=== PATIENT | female | born 2000 | race Caucasian/White ===

== ENCOUNTER 2019-09-20 16:00 | Emergency (ER) | payer OTHER, MEDICAID, SELFPAY ==
[2019-09-20 16:06] VITALS: BP 126/76; PULSE 108; RESP 18; TEMP 36.7; O2SAT 100; BMI 23.3
--- NOTE | 2019-09-20 16:25 | DI.RAD.S_ITS ---
PROCEDURE: XR CHEST 2V INDICATIONS: chest pain, cough, fever TECHNIQUE: 2 views of the chest were acquired. COMPARISON: None. FINDINGS: Surgical changes and devices: None. Lungs and pleura: Lungs are clear. No pleural effusions or pneumothorax. Mediastinum: Mediastinal contours are normal. Heart size is normal. Bones and chest wall: No suspicious bony abnormalities. Soft tissues appear unremarkable. IMPRESSION: No evidence acute pulmonary process. Dictated by: Steve Blackwood M.D. on 09/20/2019 at 16:47 Approved by: Steve Blackwood M.D. on 09/20/2019 at 16:47
[2019-09-20] MEDS: ONDANSETRON 4 MG ODT SL (16:38)
[2019-09-20 16:42] VITALS: PULSE 111; RESP 14; O2SAT 99
[2019-09-20] MEDS: ALBUTEROL/IPRATROPIUM 3 ML AMPUL INH (16:42)
[2019-09-20 17:12] LABS: Influenza A - CEPHEID Flu A NEGATIVE (NEGATIVE); Influenza B - CEPHEID Flu B NEGATIVE (NEGATIVE)
--- NOTE | 2019-09-20 17:50 | ED_ITS ---
HPI - URI/Sore Throat <ZAK MarroquinP - Last Filed: 09/20/19 18:02> General Chief Complaint: Upper Respiratory Symptoms Stated Complaint: Cough, Wheezing, Fever Time Seen by Provider: 09/20/19 16:10 Source: patient Mode of arrival: Ambulatory Limitations: no limitations History of Present Illness HPI Narrative: This is a 24-year-old female, smoker, who presents to ED with flu-like symptoms for last 5-6 days. Patient reports she gets bronchitis pretty frequently and had 3 episodes in last 6 months. Patient reports chest discomfort with cough worse at night with tightness and describing as lungs are squeezed and can't breathe well and also arm pain. Reports subjective fever and waking up with sweats, chills, nausea and 3 episodes of diarrhea yesterday. Patient denies known exposure to illness or recent foreign travel. Patient denies blood in her stools. Related Data Previous Rx's Medication Instructions Recorded albuterol sulfate 2 inhalation INHALATION Q4-6H PRN 09/20/19 #8.5 gram benzonatate [Tessalon Perles] 100 mg PO BID-TID PRN #10 cap 09/20/19 dextromethorphan-guaifenesin 1 tab PO Q12H PRN #20 tab 09/20/19 [Mucinex DM] ondansetron 4 mg PO BID-TID PRN #7 tab 09/20/19 Allergies Allergy/AdvReac Type Severity Reaction Status Date / Time amoxicillin Allergy Verified 09/20/19 16:05 varenicline [From Chantix] Allergy Verified 09/20/19 16:05 Review of Systems <SHIRLENE Marroquin - Last Filed: 09/20/19 18:02> Review of Systems Narrative: General: See HPI HEENT: Denies sinus pain, ear pain, sore throat, difficulty swallowing, dizziness. Respiratory: See HPI Cardiovascular: Denies chest pain, palpitations, orthopnea, edema. Gastrointestinal: Denies (+) nausea, vomiting, abdominal pain, diarrhea, consti pation, melena. : Denies dysuria, frequency, incontinence, hematuria, urinary retention. Musculoskeletal: Denies weakness, joint pain, (+) arm pain or bony pain. Skin: Denies rash, skin lesions, or other. Neurologic: Denies weakness, headache, numbness, change in speech, confusion, seizures, incoordination. Psychiatric: No concerning psychosocial issues. 12-point review of systems is negative except for those stated above. Patient History <SHIRLENE Marroquin - Last Filed: 09/20/19 18:02> Medical History Migraine headache (Acute) Surgical History History of appendectomy (Acute) Social History Smoking Status: Current every day smoker Smoking Status: Current every day smoker tobacco type: cigarettes alcohol intake frequency: a few times a month Substance Use Type: marijuana Exam <SHIRLENE Marroquin - Last Filed: 09/20/19 18:02> Narrative Exam Narrative: GEN: Alert, oriented x 3, well appearing and nourished, and in no acute distress. Head: Normal cephalic, atraumatic. No scalp or temporal tenderness, palpable mass or rash. EYES: Pupils are equal, round, and reactive to light and accommodation. Extraocular muscles are intact bilaterally. There is no subconjunctival hemorr johnny, exudate and sclera non-icteric. ENT: Bilateral auditory canals and tympanic membranes clear. Hearing grossly intact. Nose without bleeding, purulent discharge or deviation. Facial sinuses nontender to palpate. Mucous membrane moist, no mucosal lesion. Throat without erythema, tonsillar hypertrophy or exudate. Uvula in midline, airway patent. Neck: Trachea in midline. No JVD, non-tender without lymphadenopathy. No masses or thyroid megaly. Supple, non-tender and no meningeal signs. CARDIAC: Normal regular rate and rhythm without murmurs, gallops, or rubs. No chest wall tenderness. No peripheral edema, cyanosis or pallor. Capillary refill is less than 2 seconds. RESPIRATORY: Lungs are decreased to auscultate in all lobes. Frequent coughing during exam without wheezes, rales, or rhonchi. No stridor, respiratory distress, increase work of breathing, or accessary muscle used. ABD: Abdomen soft, nontender and non-distended. No guarding or rebound tenderness to palpate. Bowel sounds are normal in all 4 quadrants. There is no palpable masses or organomegaly. EXT: Full painless ROM of all extremities with no loss of sensation, strength, effusion or edema. SKIN: Warm, dry, normal color for patient. No erythema, lesions or rash over visible areas. BACK: Nontender without deformity or crepitance. No flank tenderness. NEUROLOGICAL: Alert and oriented to place, time and person. Sensation and motor function intact bilaterally. No facial droops, dysphasia. PSYCHIATRIC: Good judgement and reason, without hallucinations, abnormal affect or abnormal behaviors during the examination. Initial Vital Signs Initial Vital Signs: Vital Signs Temperature 98.0 F 09/20/19 16:06 Pulse Rate 108 H 09/20/19 16:06 Respiratory Rate 18 09/20/19 16:06 Blood Pressure 126/76 09/20/19 16:06 Pulse Oximetry 100 09/20/19 16:06 <Tejas Ogden DO - Last Filed: 09/20/19 18:09> Initial Vital Signs Initial Vital Signs: Vital Signs Temperature 98.0 F 09/20/19 16:06 Pulse Rate 108 H 09/20/19 16:06 Respiratory Rate 18 09/20/19 16:06 Blood Pressure 126/76 09/20/19 16:06 Pulse Oximetry 100 09/20/19 16:06 Scores <SHIRLENE Marroquin - Last Filed: 09/20/19 18:02> GCS [place] coma scale eye opening: Spontaneous [place] coma scale verbal response: Orientated [place] coma scale motor response: Obey commands Lakshmi coma scale total score: 15 Course <SHIRLENE Marroquin - Last Filed: 09/20/19 18:02> Orders Ordered: ED Orders 09/20/19 16:25 XR chest 2V Stat 09/20/19 16:34 Influenza A & B (PCR) Stat Discontinued Medications Albuterol/Ipratropium (Duoneb) 3 ml INH NOW ONE Stop: 09/20/19 16:26 Last Admin: 09/20/19 16:42 Dose: 3 ml Documented by: LUIZ Ondansetron HCl (Zofran Odt) 4 mg SL NOW ONE Stop: 09/20/19 16:26 Last Admin: 09/20/19 16:38 Dose: 4 mg Documented by: ZIA Vital Signs Vital signs: Vital Signs - 8 hr 09/20/19 16:06 09/20/19 16:42 09/20/19 18:01 Temperature 98.0 F Pulse Rate 108 H 111 H 93 H Respiratory Rate 18 14 16 Blood Pressure 126/76 Blood Pressure [Right Arm] 133/73 Pulse Oximetry 100 99 100 <Tejas Ogden DO - Last Filed: 09/20/19 18:09> Orders Ordered: ED Orders 09/20/19 16:25 XR chest 2V Stat 09/20/19 16:34 Influenza A & B (PCR) Stat Discontinued Medications Albuterol/Ipratropium (Duoneb) 3 ml INH NOW ONE Stop: 09/20/19 16:26 Last Admin: 09/20/19 16:42 Dose: 3 ml Documented by: LUIZ Ondansetron HCl (Zofran Odt) 4 mg SL NOW ONE Stop: 09/20/19 16:26 Last Admin: 09/20/19 16:38 Dose: 4 mg Documented by: ZIA Vital Signs Vital signs: Vital Signs - 8 hr 09/20/19 16:06 09/20/19 16:42 09/20/19 18:01 Temperature 98.0 F Pulse Rate 108 H 111 H 93 H Respiratory Rate 18 14 16 Blood Pressure 126/76 Blood Pressure [Right Arm] 133/73 Pulse Oximetry 100 99 100 MDM - URI/Sore Throat <SHIRLENE Marroquin - Last Filed: 09/20/19 18:02> Differential Diagnosis Differential diagnosis: Likely upper respiratory infection, bronchitis, influenza and other (Pneumonia) Medical Records Attestation: I reviewed the patient's medical records. Lab Data Attestation: I reviewed the patient's lab results. Labs: Lab Results 09/20/19 Range/Units 16:34 Influenza A (RT-PCR) Flu a negative (NEGATIVE) Influenza B (RT-PCR) Flu b negative (NEGATIVE) Imaging Data Chest x-ray: Radiologist's Impression: MDM Narrative Medical decision making narrative: This is a 19-year-old female current smoker 1 pack per day who presents to ED with upper respiratory infection/flu symptoms for last 5-6 days. Patient's lung sounds are significantly decreased bilaterally without wheezing, crackles or rhonchi but without increased work of breathing. Flu swab was negative today. Patient provided with DuoNeb and patient reports her symptoms improved. Patient advised to quit smoking to prevent frequent bronchitis and chronic lung disease. Patient discharged to home with albuterol inhaler, Mucinex DM and Tessalon perles for PRN use. Advise continue with supportive care and good hand hygiene. Return precautions were discussed with the patient and verbalized understanding and in agreement with the treatment plan. <Tejas Ogden, DO - Last Filed: 09/20/19 18:09> Lab Data Labs: Lab Results 09/20/19 Range/Units 16:34 Influenza A (RT-PCR) Flu a negative (NEGATIVE) Influenza B (RT-PCR) Flu b negative (NEGATIVE) Discharge Plan Departure Patient Disposition: Home Clinical Impression: Bronchitis Discharge Date/Time: 09/20/19 18:08 Instructions: DI for Acute Bronchitis Activity Restrictions/Additional Instructions: You have been diagnosed with [upper respiratory infection and bronchitis. Flu swab was negative. Chest x-ray does not show acute findings such as pneumonia.]. What to do: *Take your medications as directed. Please use albuterol inhaler 2 puffs as needed for frequent coughing, chest tightness, wheezing every 4-6 hours as needed. You can take Tylenol and or Motrin as needed for discomfort and fever. Please use Mucinex DM for your cold symptoms. You can take Tessalon Perles at night for cough. Albuterol, Tessalon, Mucinex DM and on the strands have been transmitted to [facility] in [place]. *Follow up with your primary care provider in 2-3 days, call for an appointment. Let them know you were seen in the ED and that we asked you to be seen in follow up. *Return to ED if you have any new, worsening, or concerning symptoms, such as [chest pain, breathing difficulty, short of breath, unable to tolerate fluids, high fever not managed by Tylenol and or Motrin, or any acute concerns]. Prescriptions: New albuterol sulfate 90 mcg/actuation HFA aerosol inhaler 2 inhalation INHALATION Q4-6H PRN (Reason: shortness of breath or wheezing) Qty: 8.5 RF: 0 benzonatate [Tessalon Perles] 100 mg capsule 100 mg PO BID-TID PRN (Reason: cough) Qty: 10 RF: 0 dextromethorphan-guaifenesin [Mucinex DM] 60-1,200 mg tablet extended release 12 hr 1 tab PO Q12H PRN (Reason: flu symptoms) Qty: 20 RF: 0 ondansetron 4 mg tablet,disintegrating 4 mg PO BID-TID PRN (Reason: nausea and vomiting) Qty: 7 RF: 0 Referrals: Erin Christie MD [Primary Care Provider] - <Tejas Ogden DO - Last Filed: 09/20/19 18:09> Sign Out Provider Sign Out Attestation: Dr Ogden Co-Sign Statement: I was available for consultation during this patient's emergency department visit. This chart is signed by myself for administrative purposes only. I did not have direct cont act with this patient during this visit. They were seen independently by the APC.
[2019-09-20 18:01] VITALS: BP 133/73; PULSE 93; RESP 16; O2SAT 100
== END 2019-09-20 18:08 | disposition home or self-care (01) ==
PROVIDERS: Emergency Provider Nurse Practitioner Family; PCP Pediatrics
DX: J40 Bronchitis, not specified as acute or chronic (principal); R07.9 Chest pain, unspecified; R50.9 Fever, unspecified
CPT/HCPCS: 71046; 87502; 94640; 99283

== ENCOUNTER 2023-05-27 13:17 | Emergency (ER) | payer OTHER, MEDICAID, SELFPAY ==
[2023-05-27 13:20] VITALS: BP 123/93; PULSE 87; RESP 18; O2SAT 100; BMI 21.9
[2023-05-27 13:48] LABS: Add Manual Diff / Slide Review NO; Basophils Absolute Auto 0 /uL (0-100); Basophils Percent Auto 0.5 % (0-2); Eosinophils Absolute Auto 0 /uL (0-450); Eosinophils Percent Auto 0.6 % (2-4); Hematocrit 40.3 % (36-46); Hemoglobin 13.9 g/dL (12.0-16.0); Lymphocytes Absolute Auto 1200 /uL (1100-4500); Lymphocytes Percent Auto 15.2 % (25-40); Mean Corpuscular HGB Conc 34.4 % (30-36); Mean Corpuscular Hemoglobin 33.8 PG (26-34); Mean Corpuscular Volume 98.4 fL (80-100); Monocytes Absolute Auto 600 /uL (0-900); Monocytes Percent Auto 7.7 % (3-14); Neutrophils Absolute Auto 6000 /uL (1500-7000); Platelet Count 262 X10^3/uL (150-400); Red Blood Cell Count 4.09 X10^6/uL (4.0-5.2); Red Cell Distribution Width 15.1 % (11.6-14.8); White Blood Cell Count 7.8 X10^3/uL (4.5-11.0)
[2023-05-27 13:57] LABS: Bacteria Urine Few (2-10); Culture Indicated Urine Cult Not Indicated; RBC Urine 0-1/HPF (0-5/HPF); Squamous Epithelial Cell Urine >30 /HPF (0-5/HPF); WBC Urine 1-5/HPF (0-5/HPF)
[2023-05-27 14:10] LABS: Alanine Aminotransferase 28 IU/L (<35); Albumin 4.1 g/dL (3.5-5.0); Albumin Globulin Ratio 1.1 (1.0-2.8); Alkaline Phosphatase 90 U/L (38-126); Aspartate Aminotransferase 46 IU/L (14-36); BUN Creatinine Ratio 15.3 (6-22); Bilirubin Total 0.7 mg/dL (0.2-1.3); Blood Urea Nitrogen 9 mg/dL (7-17); Calcium 9.5 mg/dL (8.4-10.2); Carbon Dioxide 28 mmol/L (22-32); Chloride 101 mmol/L (98-107); Estimated Glomerular Filt Rate > 60 mL/min (>60); Globulin 3.7 g/dL (1.7-4.1); Glucose 91 mg/dL (70-100); HEMOLYSIS < 15 (0-50); Lipase 59 U/L (23-300); Potassium 3.9 mmol/L (3.4-5.1); Sodium 134 mmol/L (137-145); Total Protein 7.8 g/dL (6.3-8.2)
[2023-05-27 16:20] VITALS: BP 132/78; PULSE 83; RESP 20; O2SAT 99
--- NOTE | 2023-05-27 16:38 | ED_ITS ---
HPI - Abdominal Pain General Chief Complaint: Abdominal Pain Stated Complaint: adb cramps/blood in stools/lt abd side tender Time Seen by Provider: 05/27/23 16:15 Source: patient Mode of arrival: Ambulatory Limitations: no limitations History of Present Illness HPI narrative: 22-year-old female who has a Nexplanon with no reported medical issues. Patient has had about a month of left lower abdominal pain sometimes radiates to her flank. She states no fevers but has felt hot and cold intermittently. She is had nausea and vomiting occasionally but not regularly. She states pain will sometimes wake her up from sleep then subside and then return. She states can last an hour more and then sometimes resolved. She does note it seems worsened when she is about to have a bowel movement or feels like she needs to have 1. She has been constipated she states she will only have small amounts of stool but she is also noted some bright red blood when she has had bowel movements and occasionally just some mucous instead of stool. Patient states no dysuria urgency or frequency. She has not had any vaginal bleeding or discharge. She has not had menses for couple months but states she thinks her Nexplanon has kicked in. She has not had these issues in the past. She states no daily medications. She is had a prior appendectomy. No known drug allergies. She does use tobacco daily, she does vape, occasional alcohol, no other recreational drugs. Related Data Previous Rx's Medication Instructions Recorded albuterol sulfate 90 mcg/actuation 2 inhalation inhalation Q4-6H PRN 09/20/19 aerosol inhaler shortness of breath or wheezing #8.5 grams benzonatate 100 mg capsule 100 mg PO BID-TID PRN cough #10 09/20/19 (Tesjesus manuel Casanova) caps dextromethorphan-guaifenesin ER 60 1 tab PO Q12H PRN flu symptoms #20 09/20/19 mg-1,200 mg tab,extend tabs release,12hr (Mucinex DM) ondansetron 4 mg disintegrating 4 mg PO BID-TID PRN nausea and 09/20/19 tablet vomiting #7 tabs meloxicam 7.5 mg tablet 7.5 mg PO BID PRN pain #10 tabs 05/27/23 prednisone 20 mg tablet 40 mg (2 x 20 mg) PO DAILY #10 tabs 05/27/23 Allergies Allergy/AdvReac Type Severity Reaction Status Date / Time amoxicillin Allergy Verified 09/20/19 16:05 varenicline [From Chantix] Allergy Verified 09/20/19 16:05 Review of Systems Review of Systems ROS Unobtainable: All systems reviewed & are unremarkable except as noted in HPI and below Patient History Medical History (Updated 05/27/23 @ 18:09 by Alka Gan DO) Migraine headache Surgical History History of appendectomy Social History Smoking Status: Current every day smoker Smoking Status: Current every day smoker tobacco type: cigarettes alcohol intake frequency: a few times a month Substance Use Type: marijuana Exam Narrative Exam Narrative: GENERAL: Alert and oriented x three, well-appearing female in mild distress HEENT: Head normocephalic, atraumatic, EOMI, pupils reactive, face symmetric, moist mucous membranes NECK: Supple, full range of motion CARDIOVASCULAR: Regular rate and rhythm without murmurs, rubs or gallops. RESPIRATORY: Breath sounds equal bilaterally, no wheezes rales or rhonchi. ABDOMEN: Soft, positive for left lower quadrant tenderness patient has some mild tenderness in the upper quadrant but majority in the left lower. Nondistended. Normoactive bowel sounds all 4 quadrants. No guarding or rebound, rigidity, no mass : No CVA tenderness bilaterally. EXTREMITIES: Normal range of motion, no clubbing or edema. Neurovascularly intact NEUROLOGICAL: Cranial nerves II through XII grossly intact. Moving all extremities SKIN: Warm, dry, no petechiae, no rashes or lesions. Initial Vital Signs Initial Vital Signs: Vital Signs Pulse Rate 87 05/27/23 13:20 Respiratory Rate 18 05/27/23 13:20 Blood Pressure 123/93 H 05/27/23 13:20 Pulse Oximetry 100 05/27/23 13:20 Oxygen Delivery Method Room Air 05/27/23 13:20 Course Orders Ordered: Discontinued Medications Ketorolac Tromethamine (Ketorolac 30 Mg/Ml Vial) 15 mg IV NOW ONE Stop: 05/27/23 16:16 Last Admin: 05/27/23 17:01 Dose: 15 mg Documented By: TEP Ondansetron HCl (Ondansetron 4 Mg Odt) 4 mg PO NOW PRN PRN Reason: Nausea And Vomiting Ondansetron HCl (Ondansetron 4 Mg/2 Ml Inj) 4 mg IV NOW PRN PRN Reason: Nausea And Vomiting Vital Signs Vital signs: Vital Signs - 8 hr 05/27/23 13:20 05/27/23 16:20 Pulse Rate 87 83 Respiratory Rate 18 20 Blood Pressure 123/93 H 132/78 Pulse Oximetry 100 99 Oxygen Delivery Method Room Air MDM - Abdominal Pain Lab Data 05/27/23 13:37 05/27/23 13:37 Labs: Lab Results 05/27/23 05/27/23 Range/Units 13:25 13:37 WBC 7.8 (4.5-11.0) X10^3/uL RBC 4.09 (4.0-5.2) X10^6/uL Hgb 13.9 (12.0-16.0) g/dL Hct 40.3 (36-46) % MCV 98.4 (80-100) fL MCH 33.8 (26-34) PG MCHC 34.4 (30-36) % RDW 15.1 H (11.6-14.8) % Plt Count 262 (150-400) X10^3/uL Neut % (Auto) 76.0 H (50-75) % Lymph % (Auto) 15.2 L (25-40) % [place] % (Auto) 7.7 (3-14) % Eos % (Auto) 0.6 L (2-4) % Baso % (Auto) 0.5 (0-2) % Neut # (Auto) 6000 (7201-1372) /uL Lymph # (Auto) 1200 (0316-3217) /uL [place] # (Auto) 600 (0-900) /uL Eos # (Auto) 0 (0-450) /uL Baso # (Auto) 0 (0-100) /uL Sodium 134 L (137-145) mmol/L Potassium 3.9 (3.4-5.1) mmol/L Chloride 101 (98-107) mmol/L Carbon Dioxide 28 (22-32) mmol/L BUN 9 (7-17) mg/dL Creatinine 0.59 (0.52-1.04) mg/dL Estimated GFR > 60 (>60) mL/min BUN/Creatinine Ratio 15.3 (6-22) Glucose 91 (70-100) mg/dL Calcium 9.5 (8.4-10.2) mg/dL Total Bilirubin 0.7 (0.2-1.3) mg/dL AST 46 H (14-36) IU/L ALT 28 (<35) IU/L Alkaline Phosphatase 90 (38-126) U/L Total Protein 7.8 (6.3-8.2) g/dL Albumin 4.1 (3.5-5.0) g/dL Globulin 3.7 (1.7-4.1) g/dL Albumin/Globulin Ratio 1.1 (1.0-2.8) Lipase 59 (23-300) U/L Urine RBC 0-1/hpf (0-5/HPF) Urine WBC 1-5/hpf (0-5/HPF) Ur Squamous Epith Cells >30 /hpf H (0-5/HPF) Urine Bacteria Few (2-10) H (None) Ur Culture Indicated? Cult not indicated Point of care testing: Point of Care Testing Test Results Negative Urine Dip Bedside Urine Glucose Negative Bedside Urine Bilirubin - Negative Bedside Urine Ketone - Negative Urine Specific [place] 1.010 Bedside Urine Occult Blood - Negative Bedside Urine pH 7.5 Bedside Urine Protein - Negative Bedside Urine Urobilinogen - Negative Bedside Urine Nitrite - Negative Bedside Urine Leukocytes +/- 15 Esterase MDM Narrative Medical decision making narrative: 22-year-old female with left lower quadrant abdominal pain for the past month. Patient has occasionally had some blood and mucus in her stools. Patient afebrile, labs are appropriate, no significant white count, normal hemoglobin slight leftward shift. Normal platelets. Sodium is 134 AST is 46 normal electrolytes, renal function, BUN and LFTs otherwise. Point of care is negative, point of care urine shows leuks, micro shows 0-1 RBCs, 1-5 wbc's greater than 30 squamous epithelials with few bacteria likely dirty urine. Patient's symptoms seem to be very much related to her colon. Discussed CT abdomen pelvis with imaging as patient may have colitis versus diverticulitis is most likely sources. She is agreeable, CT shows generalized distinct colonic wall thickening, volume of stool is not excessive 3.5 cm right ovarian cyst this is the opposite side of patient's pain. Patient did have a dose of Toradol here in the department. She is feeling improved. Discharge Plan Departure Patient Disposition: Home Clinical Impression: Colitis Instructions: DI for Colitis Activity Restrictions/Additional Instructions: Your imaging does show some colon wall thickening consistent with colitis. I would recommend follow up with either Gastroenterology or General surgery for colonoscopy. Contact information is included below. Please call tomorrow to set up an appointment. You do have a right ovarian cyst. You may take meloxicam 1 tablet every 12 hours as needed for pain. You can take Tylenol with this medication. Do not take other NSAIDs such as Aleve, naproxen, ibuprofen with this medication. Take steroids once daily until gone. Prescription sent to [facility] in [place] Please return for fevers, new or worsening abdominal back or flank pain, persistent vomiting, increasing black stools or other new or concerning changes. Prescriptions: New prednisone 20 mg tablet 40 mg PO DAILY Qty: 10 0RF meloxicam 7.5 mg tablet 7.5 mg PO BID PRN (Reason: pain) Qty: 10 0RF No Action albuterol sulfate 90 mcg/actuation HFA aerosol inhaler 2 inhalation INHALATION Q4-6H PRN (Reason: shortness of breath or wheezing) Qty: 8.5 0RF benzonatate [Tessalon Perles] 100 mg capsule 100 mg PO BID-TID PRN (Reason: cough) Qty: 10 0RF dextromethorphan-guaifenesin [Mucinex DM] 60-1,200 mg tablet extended release 12 hr 1 tab PO Q12H PRN (Reason: flu symptoms) Qty: 20 0RF ondansetron 4 mg tablet,disintegrating 4 mg PO BID-TID PRN (Reason: nausea and vomiting) Qty: 7 0RF Referrals: Juanito Wolf MD [Physician] - Erin Christie MD [Primary Care Provider] - Jet Louise MD [Physician] - Stand Alone Forms: Patient Portal/API
--- NOTE | 2023-05-27 16:49 | DI.CT.S_ITS ---
PROCEDURE: CT ABDOMEN PELVIS W CON INDICATIONS: LLQ pain, constipation, intermittent rectal bleeding x 1 month TECHNIQUE: After the administration of IV contrast, axial sections were acquired from the lung bases to the pubic symphysis. Coronal and sagittal reformats were performed. For radiation dose reduction, the following was used: automated exposure control, adjustment of mA and/or kV according to patient size. COMPARISON: None. FINDINGS: Image quality: Excellent. Lung bases: Unremarkable. Heart: No significant findings. ABDOMEN: Liver: Diffuse fatty liver infiltration is noted. Gallbladder: Unremarkable. Biliary ducts: Unremarkable. Pancreas: Unremarkable. Spleen: Unremarkable. Adrenal Glands: Unremarkable. Kidneys and Ureters: Unremarkable. Stomach and Bowel: Generalized distal colonic wall thickening can be seen, beginning at the level of the mid descending caution colon. No kiran masses are seen by CT. The more proximal colon is within normal limits. The volume of stool within the colon is not excessive. No dilated loops small bowel are seen. The stomach is decompressed at the time of this study, limiting its evaluation. No appendix (either normal or abnormal) is identified on this study. Peritoneum: No abnormal intraperitoneal fluid. No free air. Ventral Wall: No hernia. Abdominal Nodes: No retroperitoneal or mesenteric adenopathy by size criteria. Vessels: Aorta and inferior vena cava are normal in size. PELVIS: Pelvic Organs: No significant abnormality of the uterus can be seen. There is a 3.5 cm right ovarian cyst seen. Bladder: Unremarkable. Pelvic Nodes: No enlarged lymph nodes. Miscellaneous: No inguinal hernias are seen. Bones: Unremarkable. IMPRESSION: Generalized distal colonic wall thickening is seen. Please correlate with potential infectious and inflammatory causes of colitis. The volume of stool within the colon is not excessive. There is a 3.5 cm right ovarian cyst seen. In a patient of this age, this is almost certainly benign. If it would be clinically appropriate, a followup pelvic ultrasound could be considered in 6 weeks to assure resolution/ improvement. Additional findings: Diffuse fatty liver infiltration Dictated by: Aston Oliver M.D. on 05/27/2023 at 16:14 Approved by: Aston Oliver M.D. on 05/27/2023 at 16:17
[2023-05-27] MEDS: KETOROLAC 30 MG/ML VIAL 15 MG IV (17:01)
[2023-05-27 18:17] VITALS: BP 128/77; PULSE 79; RESP 18; O2SAT 98
== END 2023-05-27 18:18 | disposition home or self-care (01) ==
PROVIDERS: Emergency Provider Emergency Medicine; PCP Pediatrics
DX: K52.9 Noninfective gastroenteritis and colitis, unspecified (principal)
CPT/HCPCS: 36415; 74177; 80053; 81003; 81015; 81025; 83690; 85025; 87086; 96374; 99284; J1885

== ENCOUNTER 2023-06-26 13:05 | Day surgery (SDC) | payer OTHER, MEDICAID, SELFPAY ==
--- NOTE | 2023-06-26 | PATH_ITS ---
[facility] Accession Number: [id number] No. of containers..07 Tissue . 01 Material submitted: . PART A: gastrointestinal site - ANTRAL BIOPSIES PART B: duodenum - DUODENAL BIOPSIES PART C: gastrointestinal site - GASTRIC BODY PART D: esophagus, E-G Junction - GE JUNCTION PART E: small bowel - TERMINAL ILEUM PART F: colon - RIGHT COLON PART G: colon - DESCENDING COLON . 01 Diagnosis: A. Designated Stomach Antrum, Biopsies: Duodenal mucosa with no diagnostic abnormality. Negative for active inflammation, features of sprue, dysplasia, or malignancy. . B. Designated Duodenum, Biopsies: Antral mucosa with mild chronic gastritis. Negative for Helicobacter by immunohistochemistry. Negative for intestinal metaplasia. Negative for dysplasia and malignancy. . C. Stomach, Body, Biopsies: Body-type mucosa with mild chronic gastritis. Negative for Helicobacter by immunohistochemistry. Negative for intestinal metaplasia. Negative for dysplasia and malignancy. . D. Gastroesophageal Junction, Biopsy: Squamocolumnar junctional mucosa with no diagnostic abnormality. Negative for intestinal metaplasia. Negative for dysplasia and malignancy. . E. Terminal Ileum, Biopsy: Small bowel mucosa with no diagnostic abnormality. Negative for active inflammation, dysplasia, and malignancy. . F-G. Right Colon, Descending Colon, Biopsies: Colonic mucosa with no diagnostic abnormality. Negative for active, chronic, and microscopic colitis. Negative for dysplasia and malignancy. . [facility] 07/08/2023 1432 Local . 01 Electronically signed: . Irlanda Nixon MD, Pathologist NPI- [id number] . 01 Gross description: . Part A: ANTRAL BIOPSIES: Received in formalin is 2 fragment(s) of dorantes, soft tissue measuring 0.3 x 0.2 x 0.2 cm to 0.2 x 0.2 x 0.1 cm submitted entirely in 1 cassette(s) Part B: DUODENAL BIOPSIES: Received in formalin is 3 fragment(s) of dorantes, soft tissue measuring 0.4 x 0.2 x 0.1 cm to 0.2 x 0.2 x 0.1 cm submitted entirely in 1 cassette(s) Part C: GASTRIC BODY: Received in formalin is multiple fragment(s) of dorantes, soft tissue measuring 1.0 x 0.5 x 0.1 cm in aggregate submitted entirely in 1 cassette(s) Part D: GE JUNCTION: Received in formalin is multiple fragment(s) of dorantes, soft tissue measuring 0.7 x 0.2 x 0.1 cm in aggregate submitted entirely in 1 cassette(s) Part E: TERMINAL ILEUM: Received in formalin is 1 fragment(s) of dorantes, soft tissue measuring 0.4 x 0.2 x 0.1 cm submitted entirely in 1 cassette(s) Part F: RIGHT COLON: Received in formalin is 2 fragment(s) of dorantes, soft tissue measuring 0.3 x 0.3 x 0.1 cm to 0.2 x 0.1 x 0.1 cm submitted entirely in 1 cassette(s) Part G: DESCENDING COLON: Received in formalin is 2 fragment(s) of dorantes, soft tissue measuring 0.3 x 0.2 x 0.1 cm to 0.2 x 0.2 x 0.1 cm submitted entirely in 1 cassette(s) /BA[facility]I 06/27/2023 0553 Local . 01 Microscopic: . B. An immunohistochemical stain was performed to evaluate for Helicobacter organisms and is negative. The control stain showed appropriate reactivity. . C. An immunohistochemical stain was performed to evaluate for Helicobacter organisms and is negative. The control stain showed appropriate reactivity. . D. An AB/PAS stain is performed to evaluate for intestinal metaplasia and is negative. The control stain showed appropriate reactivity. . * This test was developed and its performance characteristics determined by [facility]. It has not been cleared or approved by the U.S. Food and Drug Administration. The FDA has determined that such clearance or approval is not necessary. This test is used for clinical purposes. It should not be regarded as investigational or for research. . 01 Pathologist provided ICD-10: R10.9 . 01 CPT . 735946, 834831, 356030, 782881, 926344, 679948, 491513, R35302, 748618 Specimen Comment: A courtesy copy of this report has been sent to [phone] Performed at: 01 [facility] [address] [place] [address], [place], [place] [id number] MD Javier Howell MD Phone: [phone]
[2023-06-26] MEDS: LACTATED RINGERS 1,000 ML 120 ML IV (13:35)
[2023-06-26 13:36] VITALS: BP 121/85; PULSE 91; RESP 20; TEMP 36.2; O2SAT 97; BMI 20.7
--- NOTE | 2023-06-26 14:07 | PM.PREOP ---
Pre-operative Note COVID-19 COVID-19 status: Not tested Interval Note History & Physical reviewed/Exam performed by Physician: Yes Changes to H&P: No ASA Class (for procedural sedation): II
--- NOTE | 2023-06-26 14:53 | PM.OP.EC ---
Operative Date/Time/Diagnoses Date of procedure: 06/26/23 Time of procedure: 14:53 Pre-op diagnosis: Rectal bleeding Post-op diagnosis: same Procedure & Clinicians Study performed: EGD and colonoscopy Same procedure as scheduled: Yes Surgeon: Juanito Wolf Procedure Notes Procedure in detail: Surgeon: Juanito Wolf MD Anesthesia: Olga Albright CRNA Procedure in detail: A timeout was performed. A bite blocked was placed and monitors were attached to the patient. The patient was positioned in the left lateral decubitus position. Sedation was administered. Once the patient was sedated the endoscope was inserted through the bite block and passed through the esophagus and stomach and into the duodenum. No abnormalities were seen. Random biopsies were taken from the duodenal. We then withdrew the scope into the stomach. There was antritis and random biopsies were taken from the antrum. There was also some gastritis in the body of the stomach and biopsies were taken this portion The endoscope was retroflexed and no hiatal hernia was seen.. The endoscope was straightned and withdrawn into the esophagus. There were some patches of salmon-colored mucosa extending up from the GE junction and one island of salmon-colored mucosa. Biopsies were taken from these areas. Findings: Antritis and patches of salmon-colored mucosa in the distal esophagus Next we repositioned the patient for a colonoscopy. A digital rectal exam was performed and was normal. The colonoscope was inserted and advanced to the cecum. The appendiceal orifice was identified and photographed. The terminal ileum was intubated. No abnormalities were seen. Random biopsies were taken from the terminal ileal mucosa. The scope was slowly withdrawn over greater than 6 minutes. Random biopsies were taken from the right colon. There was some mild patchy erythema in the descending colon and random biopsies were taken. The scope was retroflexed in the rectum and no other abnormalities were seen. Findings: Some patchy erythema in the descending colon EBL: 5 mL Scope withdrawal time: 12 minutes Sedation minutes: 24 minutes Post-procedure Disposition: PACU
[2023-06-26 14:54] VITALS: BP 114/68; PULSE 68; RESP 16; TEMP 36.3; O2SAT 99
[2023-06-26 15:00] VITALS: BP 125/84; PULSE 65; RESP 16; O2SAT 99
[2023-06-26 15:05] VITALS: BP 121/84; PULSE 68; RESP 13; O2SAT 97
[2023-06-26 15:20] VITALS: BP 124/64; PULSE 62; RESP 16; O2SAT 99
== END 2023-06-26 15:36 | disposition home or self-care (01) ==
PROVIDERS: Referring Provider Surgery; Visit Provider Surgery
PROC: 0DJ08ZZ Inspection of Upper Intestinal Tract, Via Natural or Artificial Opening Endoscopic (ICD-10-PCS; CPT 43235; principal; 2023-06-26 14:00)
PROC: 0DJD8ZZ Inspection of Lower Intestinal Tract, Via Natural or Artificial Opening Endoscopic (ICD-10-PCS; CPT 45378; 2023-06-26 14:00)
DX: K62.5 Hemorrhage of anus and rectum (principal); K29.50 Unspecified chronic gastritis without bleeding; K44.9 Diaphragmatic hernia without obstruction or gangrene; K29.70 Gastritis, unspecified, without bleeding
CPT/HCPCS: 45380; 43239; J2250; J2704; J3010

== ENCOUNTER 2024-01-16 17:29 | Emergency (ER) | payer OTHER, MEDICAID, SELFPAY ==
[2024-01-16] VITALS (17 sets, daily range): BP systolic 105–149; BP diastolic 60–81; PULSE 66–105; RESP 16; TEMP 37; O2SAT 98–100; BMI 24.4
--- NOTE | 2024-01-16 19:00 | PC.NURSE ---
Pt c/o lower leg numbness; difficulty walking/feeling from mid-lower back and below. Pt states she has had to set reminders to pee.
--- NOTE | 2024-01-16 19:36 | ED.EXTPRO ---
HPI - Extremity Problem General Chief complaint: Extremity Problem,Nontraumatic Stated complaint: lost feeling in extremities, can't walk Time Seen by Provider: 01/16/24 19:33 Source: patient Mode of arrival: Family Vehicle History of Present Illness HPI Narrative: 23-year-old female reports weakness of both legs, feels like she cannot walk today, also has had tingling and numbness to arms and legs for the last 2 weeks, recent return from [place] vacation, sunburn noted, denies drug use, does admit to alcohol use, last drink of alcohol Friday 2 days ago. Slept on the couch in the living room last night, this morning felt like she could not walk, had back pain, no injury or trauma. Deines pain with urination. Denies headache. Denies neck pain. Denies upper back pain. Denies lower back pain. No incontinence of stool or urine. No history of neuromuscular disorders. No history of neurological disorders. No history of prior stroke or trauma. No brain lesions in the past known. No spinal injuries or spinal problems or weakness in the past. No recent cough cold or muscle aches symptoms. She has history of anxiety, was started on Prozac a proximally 2 months ago, no dose changes, no new medications prescription or [id number]. Related Data Previous Rx's Medication Instructions Recorded albuterol sulfate 90 mcg/actuation 2 inhalation inhalation Q4-6H PRN 09/20/19 aerosol inhaler shortness of breath or wheezing #8.5 grams Allergies Allergy/AdvReac Type Severity Reaction Status Date / Time amoxicillin Allergy Verified 06/26/23 13:20 [email or web address] [From Chantix] Allergy Verified 06/26/23 13:20 Patient History Medical History (Updated 01/16/24 @ 22:29 by Vj García MD) Migraine headache Surgical History History of appendectomy Social History household members: family Smoking Status: Current some day smoker alcohol intake: current Smoking Status: Current some day smoker tobacco type: vaping alcohol intake frequency: a few times a month Alcohol type: beer Substance Use Type: marijuana Exam Narrative Exam Narrative: GENERAL: Well-developed patient, in mild distress. HEAD: Atraumatic. Normocephalic. EYES: Pupils equal round and reactive. Extraocular motions intact. No scleral icterus. No injection or drainage. ENT: Nose without bleeding, purulent drainage. Throat without erythema, tonsillar hypertrophy or exudate. Airway patent. NECK: Trachea midline. Non tender CARDIOVASCULAR: Regular rate and rhythm without murmurs, gallops, or rubs. RESPIRATORY: Clear to auscultation. Breath sounds equal bilaterally. No wheezes, rales, or rhonchi. GASTROINTESTINAL: Abdomen soft, non-tender, nondistended. EXTREMITIES: No edema or joint tenderness. BACK: Nontender without deformity or crepitance. No flank tenderness. No tenderness T-spine or lumbar spine midline or paraspinal NEURO: AOx3. Noted to be able to lift her legs, move her legs from crossed on cross position, sit upright for lung exam easily, moving arms well. No facial droop. Pupils equal round reactive to light. Extraocular movements intact. Intact sensation to light touch lower extremities and upper extremities and face. SKIN: No rash or erythema of visible areas Initial Vital Signs Initial Vital Signs: Vital Signs Temperature 98.6 F 01/16/24 17:33 Pulse Rate 105 H 01/16/24 17:33 Respiratory Rate 16 01/16/24 17:33 Blood Pressure 115/75 01/16/24 17:33 Pulse Oximetry 99 01/16/24 17:33 Oxygen Delivery Method Room Air 01/16/24 17:33 Course Orders Ordered: ED Orders 01/16/24 22:22 XR lumbar spine 2-3V Stat XR thoracic spine 2V Stat Discontinued Medications Acetaminophen (Acetaminophen 325 Mg Tablet) 650 mg PO Q4H PRN PRN Reason: Fever/Mild Pain (1-3) Last Admin: 01/16/24 22:30 Dose: 650 mg Documented By: TRAN Hydroxyzine HCl (Hydroxyzine Hcl 25 Mg Tablet) 25 mg PO NOW ONE Stop: 01/16/24 22:24 Last Admin: 01/16/24 22:31 Dose: 25 mg Documented By: TRAN Sodium Chloride (Normal Saline 0.9%) 1,000 mls @ 1,000 mls/hr IV BOLUS ONE Stop: 01/16/24 21:21 Last Infusion: 01/16/24 22:02 Dose: Infused Documented By: Admin: 01/16/24 21:02 Dose: 1,000 mls/hr Documented By: TRAN Vital Signs Vital signs: Vital Signs - 8 hr 01/16/24 22:30 01/16/24 22:31 01/16/24 22:31 Pulse Rate 78 77 Blood Pressure 107/68 Pulse Oximetry 100 99 01/16/24 22:51 01/16/24 22:51 01/16/24 23:00 Pulse Rate 70 66 Blood Pressure 105/74 Pulse Oximetry 98 98 01/16/24 23:30 01/17/24 00:00 Pulse Rate 71 74 Blood Pressure Pulse Oximetry 99 99 MDM - Extremity (Nontraumatic) Lab Data 01/16/24 20:31 01/16/24 20:31 Labs: Lab Results 01/16/24 01/16/24 01/16/24 Range/Units 19:58 19:58 19:58 WBC (4.5-11.0) X10^3/uL RBC (4.0-5.2) X10^6/uL Hgb (12.0-16.0) g/dL Hct (36-46) % MCV (80-100) fL MCH (26-34) PG MCHC (30-36) % RDW (11.6-14.8) % Plt Count (150-400) X10^3/uL Neut % (Auto) (50-75) % Lymph % (Auto) (25-40) % [place] % (Auto) (3-14) % Eos % (Auto) (2-4) % Baso % (Auto) (0-2) % Neut # (Auto) (5075-6706) /uL Lymph # (Auto) (8957-7558) /uL [place] # (Auto) (0-900) /uL Eos # (Auto) (0-450) /uL Baso # (Auto) (0-100) /uL Sodium (137-145) mmol/L Potassium (3.4-5.1) mmol/L Chloride (98-107) mmol/L Carbon Dioxide (22-32) mmol/L BUN (7-17) mg/dL Creatinine (0.52-1.04) mg/dL Estimated GFR (>60) mL/min BUN/Creatinine Ratio (6-22) Glucose (70-100) mg/dL Calcium (8.4-10.2) mg/dL Total Bilirubin (0.2-1.3) mg/dL AST (14-36) IU/L ALT (<35) IU/L Alkaline Phosphatase (38-126) U/L Total Creatine Kinase (30-135) U/L Total Protein (6.3-8.2) g/dL Albumin (3.5-5.0) g/dL Globulin (1.7-4.1) g/dL Albumin/Globulin Ratio (1.0-2.8) Vitamin B12 (239-931) pg/mL Folate (2.76-20.0) ng/mL TSH (0.47-4.68) uIU/mL HCG, Quant mIU/mL Urine Color Yellow Cancelled Urine Appearance Clear Cancelled Urine pH 5.5 (4.5-8.0) Ur Specific [place] (1.000-1.035) Urine Protein (Negative) Urine Glucose (UA) (Negative) g/dL Urine Ketones (NEGATIVE) Urine Occult Blood (Negative) Urine Nitrate (Negative) Urine Bilirubin (NEGATIVE) Urine Urobilinogen (0.2) E.U./dL Ur Leukocyte Esterase (NEGATIVE) Urine RBC (0-5/HPF) Urine WBC (0-5/HPF) Ur Squamous Epith Cells (0-5/HPF) Ur Transition Epith Cell Ur Renal Epithelial Cell Calcium Oxalate Crystal Uric Acid Crystals Triple Phos Crystals Other Crystals Amorphous Sediment Urine Bacteria (None) Hyaline Casts Granular Casts RBC Casts WBC Casts Other Casts Urine Mucus Urine Trichomonas Urine Yeast Urine Sperm Ur Culture Indicated? Micro UA Comment Vol Urine Centrifuged U Opiates 300ng/mL cut (Negative) Ur Oxycodone Screen (Negative) Urine Methadone Screen (Negative) Ur Barbiturates Screen (Negative) U Tricyclic Antidepress (Negative) Ur Phencyclidine Scrn (Negative) Ur Amphetamines Screen (Negative) U Methamphetamines Scrn (Negative) Ur MDMA Scrn (Ecstasy) (Negative) U Benzodiazepines Scrn (Negative) Urine Cocaine Screen (Negative) U Marijuana (THC) Screen (Negative) Urine Specific [place] (Normal) Ethyl Alcohol ( - 10) mg/dL Ur Creatinine (Normal) 01/16/24 01/16/24 01/16/24 Range/Units 19:58 19:58 19:58 WBC (4.5-11.0) X10^3/uL RBC (4.0-5.2) X10^6/uL Hgb (12.0-16.0) g/dL Hct (36-46) % MCV (80-100) fL MCH (26-34) PG MCHC (30-36) % RDW (11.6-14.8) % Plt Count (150-400) X10^3/uL Neut % (Auto) (50-75) % Lymph % (Auto) (25-40) % [place] % (Auto) (3-14) % Eos % (Auto) (2-4) % Baso % (Auto) (0-2) % Neut # (Auto) (9909-1926) /uL Lymph # (Auto) (8128-3160) /uL [place] # (Auto) (0-900) /uL Eos # (Auto) (0-450) /uL Baso # (Auto) (0-100) /uL Sodium (137-145) mmol/L Potassium (3.4-5.1) mmol/L Chloride (98-107) mmol/L Carbon Dioxide (22-32) mmol/L BUN (7-17) mg/dL Creatinine (0.52-1.04) mg/dL Estimated GFR (>60) mL/min BUN/Creatinine Ratio (6-22) Glucose (70-100) mg/dL Calcium (8.4-10.2) mg/dL Total Bilirubin (0.2-1.3) mg/dL AST (14-36) IU/L ALT (<35) IU/L Alkaline Phosphatase (38-126) U/L Total Creatine Kinase (30-135) U/L Total Protein (6.3-8.2) g/dL Albumin (3.5-5.0) g/dL Globulin (1.7-4.1) g/dL Albumin/Globulin Ratio (1.0-2.8) Vitamin B12 (239-931) pg/mL Folate (2.76-20.0) ng/mL TSH (0.47-4.68) uIU/mL HCG, Quant mIU/mL Urine Color Urine Appearance Urine pH Cancelled (4.5-8.0) Ur Specific [place] <=1.005 Cancelled (1.000-1.035) Urine Protein Negative Cancelled (Negative) Urine Glucose (UA) Negative (Negative) g/dL Urine Ketones (NEGATIVE) Urine Occult Blood (Negative) Urine Nitrate (Negative) Urine Bilirubin (NEGATIVE) Urine Urobilinogen (0.2) E.U./dL Ur Leukocyte Esterase (NEGATIVE) Urine RBC (0-5/HPF) Urine WBC (0-5/HPF) Ur Squamous Epith Cells (0-5/HPF) Ur Transition Epith Cell Ur Renal Epithelial Cell Calcium Oxalate Crystal Uric Acid Crystals Triple Phos Crystals Other Crystals Amorphous Sediment Urine Bacteria (None) Hyaline Casts Granular Casts RBC Casts WBC Casts Other Casts Urine Mucus Urine Trichomonas Urine Yeast Urine Sperm Ur Culture Indicated? Micro UA Comment Vol Urine Centrifuged U Opiates 300ng/mL cut (Negative) Ur Oxycodone Screen (Negative) Urine Methadone Screen (Negative) Ur Barbiturates Screen (Negative) U Tricyclic Antidepress (Negative) Ur Phencyclidine Scrn (Negative) Ur Amphetamines Screen (Negative) U Methamphetamines Scrn (Negative) Ur MDMA Scrn (Ecstasy) (Negative) U Benzodiazepines Scrn (Negative) Urine Cocaine Screen (Negative) U Marijuana (THC) Screen (Negative) Urine Specific [place] (Normal) Ethyl Alcohol ( - 10) mg/dL Ur Creatinine (Normal) 01/16/24 01/16/24 01/16/24 Range/Units 19:58 19:58 19:58 WBC (4.5-11.0) X10^3/uL RBC (4.0-5.2) X10^6/uL Hgb (12.0-16.0) g/dL Hct (36-46) % MCV (80-100) fL MCH (26-34) PG MCHC (30-36) % RDW (11.6-14.8) % Plt Count (150-400) X10^3/uL Neut % (Auto) (50-75) % Lymph % (Auto) (25-40) % [place]ett % (Auto) (3-14) % Eos % (Auto) (2-4) % Baso % (Auto) (0-2) % Neut # (Auto) (6692-4271) /uL Lymph # (Auto) (6436-4663) /uL [place] # (Auto) (0-900) /uL Eos # (Auto) (0-450) /uL Baso # (Auto) (0-100) /uL Sodium (137-145) mmol/L Potassium (3.4-5.1) mmol/L Chloride (98-107) mmol/L Carbon Dioxide (22-32) mmol/L BUN (7-17) mg/dL Creatinine (0.52-1.04) mg/dL Estimated GFR (>60) mL/min BUN/Creatinine Ratio (6-22) Glucose (70-100) mg/dL Calcium (8.4-10.2) mg/dL Total Bilirubin (0.2-1.3) mg/dL AST (14-36) IU/L ALT (<35) IU/L Alkaline Phosphatase (38-126) U/L Total Creatine Kinase (30-135) U/L Total Protein (6.3-8.2) g/dL Albumin (3.5-5.0) g/dL Globulin (1.7-4.1) g/dL Albumin/Globulin Ratio (1.0-2.8) Vitamin B12 (239-931) pg/mL Folate (2.76-20.0) ng/mL TSH (0.47-4.68) uIU/mL HCG, Quant mIU/mL Urine Color Urine Appearance Urine pH (4.5-8.0) Ur Specific [place] (1.000-1.035) Urine Protein (Negative) Urine Glucose (UA) Cancelled (Negative) g/dL Urine Ketones Negative Cancelled (NEGATIVE) Urine Occult Blood Negative Cancelled (Negative) Urine Nitrate Negative (Negative) Urine Bilirubin (NEGATIVE) Urine Urobilinogen (0.2) E.U./dL Ur Leukocyte Esterase (NEGATIVE) Urine RBC (0-5/HPF) Urine WBC (0-5/HPF) Ur Squamous Epith Cells (0-5/HPF) Ur Transition Epith Cell Ur Renal Epithelial Cell Calcium Oxalate Crystal Uric Acid Crystals Triple Phos Crystals Other Crystals Amorphous Sediment Urine Bacteria (None) Hyaline Casts Granular Casts RBC Casts WBC Casts Other Casts Urine Mucus Urine Trichomonas Urine Yeast Urine Sperm Ur Culture Indicated? Micro UA Comment Vol Urine Centrifuged U Opiates 300ng/mL cut (Negative) Ur Oxycodone Screen (Negative) Urine Methadone Screen (Negative) Ur Barbiturates Screen (Negative) U Tricyclic Antidepress (Negative) Ur Phencyclidine Scrn (Negative) Ur Amphetamines Screen (Negative) U Methamphetamines Scrn (Negative) Ur MDMA Scrn (Ecstasy) (Negative) U Benzodiazepines Scrn (Negative) Urine Cocaine Screen (Negative) U Marijuana (THC) Screen (Negative) Urine Specific [place] (Normal) Ethyl Alcohol ( - 10) mg/dL Ur Creatinine (Normal) 01/16/24 01/16/24 01/16/24 Range/Units 19:58 19:58 19:58 WBC (4.5-11.0) X10^3/uL RBC (4.0-5.2) X10^6/uL Hgb (12.0-16.0) g/dL Hct (36-46) % MCV (80-100) fL MCH (26-34) PG MCHC (30-36) % RDW (11.6-14.8) % Plt Count (150-400) X10^3/uL Neut % (Auto) (50-75) % Lymph % (Auto) (25-40) % [place] % (Auto) (3-14) % Eos % (Auto) (2-4) % Baso % (Auto) (0-2) % Neut # (Auto) (2656-1248) /uL Lymph # (Auto) (3588-5871) /uL [place] # (Auto) (0-900) /uL Eos # (Auto) (0-450) /uL Baso # (Auto) (0-100) /uL Sodium (137-145) mmol/L Potassium (3.4-5.1) mmol/L Chloride (98-107) mmol/L Carbon Dioxide (22-32) mmol/L BUN (7-17) mg/dL Creatinine (0.52-1.04) mg/dL Estimated GFR (>60) mL/min BUN/Creatinine Ratio (6-22) Glucose (70-100) mg/dL Calcium (8.4-10.2) mg/dL Total Bilirubin (0.2-1.3) mg/dL AST (14-36) IU/L ALT (<35) IU/L Alkaline Phosphatase (38-126) U/L Total Creatine Kinase (30-135) U/L Total Protein (6.3-8.2) g/dL Albumin (3.5-5.0) g/dL Globulin (1.7-4.1) g/dL Albumin/Globulin Ratio (1.0-2.8) Vitamin B12 (239-931) pg/mL Folate (2.76-20.0) ng/mL TSH (0.47-4.68) uIU/mL HCG, Quant mIU/mL Urine Color Urine Appearance Urine pH (4.5-8.0) Ur Specific [place] (1.000-1.035) Urine Protein (Negative) Urine Glucose (UA) (Negative) g/dL Urine Ketones (NEGATIVE) Urine Occult Blood (Negative) Urine Nitrate Cancelled (Negative) Urine Bilirubin Negative Cancelled (NEGATIVE) Urine Urobilinogen 0.2 Cancelled (0.2) E.U./dL Ur Leukocyte Esterase Negative (NEGATIVE) Urine RBC (0-5/HPF) Urine WBC (0-5/HPF) Ur Squamous Epith Cells (0-5/HPF) Ur Transition Epith Cell Ur Renal Epithelial Cell Calcium Oxalate Crystal Uric Acid Crystals Triple Phos Crystals Other Crystals Amorphous Sediment Urine Bacteria (None) Hyaline Casts Granular Casts RBC Casts WBC Casts Other Casts Urine Mucus Urine Trichomonas Urine Yeast Urine Sperm Ur Culture Indicated? Micro UA Comment Vol Urine Centrifuged U Opiates 300ng/mL cut (Negative) Ur Oxycodone Screen (Negative) Urine Methadone Screen (Negative) Ur Barbiturates Screen (Negative) U Tricyclic Antidepress (Negative) Ur Phencyclidine Scrn (Negative) Ur Amphetamines Screen (Negative) U Methamphetamines Scrn (Negative) Ur MDMA Scrn (Ecstasy) (Negative) U Benzodiazepines Scrn (Negative) Urine Cocaine Screen (Negative) U Marijuana (THC) Screen (Negative) Urine Specific [place] (Normal) Ethyl Alcohol ( - 10) mg/dL Ur Creatinine (Normal) 01/16/24 01/16/24 01/16/24 Range/Units 19:58 19:58 19:58 WBC (4.5-11.0) X10^3/uL RBC (4.0-5.2) X10^6/uL Hgb (12.0-16.0) g/dL Hct (36-46) % MCV (80-100) fL MCH (26-34) PG MCHC (30-36) % RDW (11.6-14.8) % Plt Count (150-400) X10^3/uL Neut % (Auto) (50-75) % Lymph % (Auto) (25-40) % [place] % (Auto) (3-14) % Eos % (Auto) (2-4) % Baso % (Auto) (0-2) % Neut # (Auto) (6720-2688) /uL Lymph # (Auto) (9234-2683) /uL [place] # (Auto) (0-900) /uL Eos # (Auto) (0-450) /uL Baso # (Auto) (0-100) /uL Sodium (137-145) mmol/L Potassium (3.4-5.1) mmol/L Chloride (98-107) mmol/L Carbon Dioxide (22-32) mmol/L BUN (7-17) mg/dL Creatinine (0.52-1.04) mg/dL Estimated GFR (>60) mL/min BUN/Creatinine Ratio (6-22) Glucose (70-100) mg/dL Calcium (8.4-10.2) mg/dL Total Bilirubin (0.2-1.3) mg/dL AST (14-36) IU/L ALT (<35) IU/L Alkaline Phosphatase (38-126) U/L Total Creatine Kinase (30-135) U/L Total Protein (6.3-8.2) g/dL Albumin (3.5-5.0) g/dL Globulin (1.7-4.1) g/dL Albumin/Globulin Ratio (1.0-2.8) Vitamin B12 (239-931) pg/mL Folate (2.76-20.0) ng/mL TSH (0.47-4.68) uIU/mL HCG, Quant mIU/mL Urine Color Urine Appearance Urine pH (4.5-8.0) Ur Specific [place] (1.000-1.035) Urine Protein (Negative) Urine Glucose (UA) (Negative) g/dL Urine Ketones (NEGATIVE) Urine Occult Blood (Negative) Urine Nitrate (Negative) Urine Bilirubin (NEGATIVE) Urine Urobilinogen (0.2) E.U./dL Ur Leukocyte Esterase Cancelled (NEGATIVE) Urine RBC None seen Cancelled (0-5/HPF) Urine WBC 0-1/hpf Cancelled (0-5/HPF) Ur Squamous Epith Cells 5-10 /hpf H (0-5/HPF) Ur Transition Epith Cell Ur Renal Epithelial Cell Calcium Oxalate Crystal Uric Acid Crystals Triple Phos Crystals Other Crystals Amorphous Sediment Urine Bacteria (None) Hyaline Casts Granular Casts RBC Casts WBC Casts Other Casts Urine Mucus Urine Trichomonas Urine Yeast Urine Sperm Ur Culture Indicated? Micro UA Comment Vol Urine Centrifuged U Opiates 300ng/mL cut (Negative) Ur Oxycodone Screen (Negative) Urine Methadone Screen (Negative) Ur Barbiturates Screen (Negative) U Tricyclic Antidepress (Negative) Ur Phencyclidine Scrn (Negative) Ur Amphetamines Screen (Negative) U Methamphetamines Scrn (Negative) Ur MDMA Scrn (Ecstasy) (Negative) U Benzodiazepines Scrn (Negative) Urine Cocaine Screen (Negative) U Marijuana (THC) Screen (Negative) Urine Specific [place] (Normal) Ethyl Alcohol ( - 10) mg/dL Ur Creatinine (Normal) 01/16/24 01/16/24 01/16/24 Range/Units 19:58 19:58 19:58 WBC (4.5-11.0) X10^3/uL RBC (4.0-5.2) X10^6/uL Hgb (12.0-16.0) g/dL Hct (36-46) % MCV (80-100) fL MCH (26-34) PG MCHC (30-36) % RDW (11.6-14.8) % Plt Count (150-400) X10^3/uL Neut % (Auto) (50-75) % Lymph % (Auto) (25-40) % [place] % (Auto) (3-14) % Eos % (Auto) (2-4) % Baso % (Auto) (0-2) % Neut # (Auto) (4978-1404) /uL Lymph # (Auto) (1211-7116) /uL [place] # (Auto) (0-900) /uL Eos # (Auto) (0-450) /uL Baso # (Auto) (0-100) /uL Sodium (137-145) mmol/L Potassium (3.4-5.1) mmol/L Chloride (98-107) mmol/L Carbon Dioxide (22-32) mmol/L BUN (7-17) mg/dL Creatinine (0.52-1.04) mg/dL Estimated GFR (>60) mL/min BUN/Creatinine Ratio (6-22) Glucose (70-100) mg/dL Calcium (8.4-10.2) mg/dL Total Bilirubin (0.2-1.3) mg/dL AST (14-36) IU/L ALT (<35) IU/L Alkaline Phosphatase (38-126) U/L Total Creatine Kinase (30-135) U/L Total Protein (6.3-8.2) g/dL Albumin (3.5-5.0) g/dL Globulin (1.7-4.1) g/dL Albumin/Globulin Ratio (1.0-2.8) Vitamin B12 (239-931) pg/mL Folate (2.76-20.0) ng/mL TSH (0.47-4.68) uIU/mL HCG, Quant mIU/mL Urine Color Urine Appearance Urine pH (4.5-8.0) Ur Specific [place] (1.000-1.035) Urine Protein (Negative) Urine Glucose (UA) (Negative) g/dL Urine Ketones (NEGATIVE) Urine Occult Blood (Negative) Urine Nitrate (Negative) Urine Bilirubin (NEGATIVE) Urine Urobilinogen (0.2) E.U./dL Ur Leukocyte Esterase (NEGATIVE) Urine RBC (0-5/HPF) Urine WBC (0-5/HPF) Ur Squamous Epith Cells Cancelled (0-5/HPF) Ur Transition Epith Cell Cancelled Ur Renal Epithelial Cell Cancelled Calcium Oxalate Crystal Cancelled Uric Acid Crystals Cancelled Triple Phos Crystals Cancelled Other Crystals Cancelled Amorphous Sediment Cancelled Urine Bacteria Occasional (0-1) Cancelled (None) Hyaline Casts Cancelled Granular Casts Cancelled RBC Casts Cancelled WBC Casts Cancelled Other Casts Cancelled Urine Mucus Cancelled Urine Trichomonas Cancelled Urine Yeast Cancelled Urine Sperm Cancelled Ur Culture Indicated? Cult not indicated Cancelled Micro UA Comment Cancelled Vol Urine Centrifuged 10ml (spun) U Opiates 300ng/mL cut (Negative) Ur Oxycodone Screen (Negative) Urine Methadone Screen (Negative) Ur Barbiturates Screen (Negative) U Tricyclic Antidepress (Negative) Ur Phencyclidine Scrn (Negative) Ur Amphetamines Screen (Negative) U Methamphetamines Scrn (Negative) Ur MDMA Scrn (Ecstasy) (Negative) U Benzodiazepines Scrn (Negative) Urine Cocaine Screen (Negative) U Marijuana (THC) Screen (Negative) Urine Specific [place] (Normal) Ethyl Alcohol ( - 10) mg/dL Ur Creatinine (Normal) 01/16/24 01/16/24 Range/Units 19:58 20:31 WBC 5.9 (4.5-11.0) X10^3/uL RBC 3.62 L (4.0-5.2) X10^6/uL Hgb 12.4 (12.0-16.0) g/dL Hct 36.8 (36-46) % MCV 101.8 H (80-100) fL MCH 34.3 H (26-34) PG MCHC 33.7 (30-36) % RDW 15.0 H (11.6-14.8) % Plt Count 301 (150-400) X10^3/uL Neut % (Auto) 51.8 (50-75) % Lymph % (Auto) 36.6 (25-40) % [place] % (Auto) 9.2 (3-14) % Eos % (Auto) 1.3 L (2-4) % Baso % (Auto) 1.1 (0-2) % Neut # (Auto) 3000 (7387-8738) /uL Lymph # (Auto) 2100 (8566-3671) /uL [place] # (Auto) 500 (0-900) /uL Eos # (Auto) 100 (0-450) /uL Baso # (Auto) 100 (0-100) /uL Sodium 140 (137-145) mmol/L Potassium 3.9 (3.4-5.1) mmol/L Chloride 107 (98-107) mmol/L Carbon Dioxide 27 (22-32) mmol/L BUN 11 (7-17) mg/dL Creatinine 0.56 (0.52-1.04) mg/dL Estimated GFR > 60 (>60) mL/min BUN/Creatinine Ratio 19.6 (6-22) Glucose 88 (70-100) mg/dL Calcium 9.1 (8.4-10.2) mg/dL Total Bilirubin 0.4 (0.2-1.3) mg/dL AST 23 (14-36) IU/L ALT 20 (<35) IU/L Alkaline Phosphatase 69 (38-126) U/L Total Creatine Kinase 38 (30-135) U/L Total Protein 8.0 (6.3-8.2) g/dL Albumin 4.4 (3.5-5.0) g/dL Globulin 3.6 (1.7-4.1) g/dL Albumin/Globulin Ratio 1.2 (1.0-2.8) Vitamin B12 < 159 L (239-931) pg/mL Folate 8.4 (2.76-20.0) ng/mL TSH 0.475 (0.47-4.68) uIU/mL HCG, Quant < 2.39 mIU/mL Urine Color Urine Appearance Urine pH Normal (4.5-8.0) Ur Specific [place] (1.000-1.035) Urine Protein (Negative) Urine Glucose (UA) (Negative) g/dL Urine Ketones (NEGATIVE) Urine Occult Blood (Negative) Urine Nitrate (Negative) Urine Bilirubin (NEGATIVE) Urine Urobilinogen (0.2) E.U./dL Ur Leukocyte Esterase (NEGATIVE) Urine RBC (0-5/HPF) Urine WBC (0-5/HPF) Ur Squamous Epith Cells (0-5/HPF) Ur Transition Epith Cell Ur Renal Epithelial Cell Calcium Oxalate Crystal Uric Acid Crystals Triple Phos Crystals Other Crystals Amorphous Sediment Urine Bacteria (None) Hyaline Casts Granular Casts RBC Casts WBC Casts Other Casts Urine Mucus Urine Trichomonas Urine Yeast Urine Sperm Ur Culture Indicated? Micro UA Comment Vol Urine Centrifuged Cancelled U Opiates 300ng/mL cut Negative (Negative) Ur Oxycodone Screen Negative (Negative) Urine Methadone Screen Negative (Negative) Ur Barbiturates Screen Negative (Negative) U Tricyclic Antidepress Negative (Negative) Ur Phencyclidine Scrn Negative (Negative) Ur Amphetamines Screen Negative (Negative) U Methamphetamines Scrn Negative (Negative) Ur MDMA Scrn (Ecstasy) Negative (Negative) U Benzodiazepines Scrn Negative (Negative) Urine Cocaine Screen Negative (Negative) U Marijuana (THC) Screen Positive H (Negative) Urine Specific [place] Normal (Normal) Ethyl Alcohol < 10 ( - 10) mg/dL Ur Creatinine Normal (Normal) Point of Care Testing Glucose POC 70 Imaging Data XRay T-Spine: Radiologist's Impression: [address] [id number] XRay Report Signed Patient: Doreen Miller MR#: [id number] : 2000 Acct:[id number] Age/Sex: 23 / F Date of Service: 01/16/24 Loc: ED Accession Number: [id number] Procedure: XR thoracic spine 2V Ordering Provider: Vj García MD PROCEDURE: XR THORACIC SPINE 2V INDICATIONS: back pain TECHNIQUE: 3 views of the thoracic spine were acquired. COMPARISON: None. FINDINGS: Bones: No fractures or dislocations. No suspicious bony lesions. 12 pairs of ribs are noted, and appear intact where visualized. Soft tissues: No paravertebral stripe thickening. IMPRESSION: No acute compression fracture or spondylolisthesis in thoracic spine. Dictated by: Eh Bates M.D. on 01/16/2024 at 23:09 Approved by: Eh Bates M.D. on 01/16/2024 at 23:09 XRay L-Spine: Radiologist's Impression: [place] [address] XRay Report Signed Patient: Dorene Miller MR#: [id number] : 2000 Acct:[id number] Age/Sex: 23 / F Date of Service: 01/16/24 Loc: ED Accession Number: [id number] Procedure: XR thoracic spine 2V Ordering Provider: Vj García MD PROCEDURE: XR THORACIC SPINE 2V INDICATIONS: back pain TECHNIQUE: 3 views of the thoracic spine were acquired. COMPARISON: None. FINDINGS: Bones: No fractures or dislocations. No suspicious bony lesions. 12 pairs of ribs are noted, and appear intact where visualized. Soft tissues: No paravertebral stripe thickening. IMPRESSION: No acute compression fracture or spondylolisthesis in thoracic spine. Dictated by: Eh Bates M.D. on 01/16/2024 at 23:09 Approved by: Eh Bates M.D. on 01/16/2024 at 23:09 MDM Narrative Medical decision making narrative: 23-year-old female with history of alcohol use, denies drug use, complains of tingling numbness upper and lower extremities for the last 2 weeks, history of anxiety on Prozac for 2 months, no recent dose change. Afebrile on triage. Glucose 90 noted. Other labs pending. No obvious trauma. She states that she can not move her legs but seems to cross her legs and on cross her legs, she rolls to the side left and then to the right side for back exam is without any obvious weakness or difficulties, is able to sit up without any obvious difficulties. Urine drug screen, HCG, ethanol level, CPK, TSH, folate, vitamin B12 levels pending. IV fluid bolus. Labs scream largely unremarkable. HCG negative. Ethanol negative. CPK negative. TSH negative. Electrolytes unremarkable. Urine drug screen was positive for cannabis. Family/patient would like imaging for her back pain, urinalysis pending. T-spine and L-spine x-rays requested. History of anxiety, tingling of hands and feet, suspect panic/anxiety, takes Prozac with no dose changes for the last couple of months, p.o. hydroxyzine dose given X-ray reports Tsp and Lsp were unremarkable. Nursing reports patient left with family rather abruptly, and was able to ambulate on her own easily. Eloped from the emergency department. Discharge Plan Departure Patient Disposition: Elopement Clinical Impression: Back pain, Marijuana user, Anxiety Prescriptions: No Action albuterol sulfate 90 mcg/actuation HFA aerosol inhaler 2 inhalation INHALATION Q4-6H PRN (Reason: shortness of breath or wheezing) Qty: 8.5 0RF Referrals: Miscellaneous,Doctor, MD [Primary Care Provider] - Diet/Activity/Treatments Activity: Symptoms of weakness but able to move easily on exam, denied drug use however urine drug screen was positive for marijuana/cannabis. Ongoing recent alcohol use by report. Back pain, x-rays of the spine unremarkable. Screening labs unremarkable. History of anxiety, on Prozac medication, doubt toxidrome of the medication itself, continue the Prozac medication. Could consider adding hydroxyzine. Follow up with your mental health provider early this next week. Return to this/nearest emergency department for any change worsening symptoms or any concerns prior
[2024-01-16 20:05] LABS: Appearance Urine UA CLEAR; Bilirubin Urine UA NEGATIVE (NEGATIVE); Color Urine UA YELLOW; Glucose Urine UA NEGATIVE (Negative); Ketones Urine UA NEGATIVE (NEGATIVE); Leukocyte Esterase Urine UA NEGATIVE (NEGATIVE); Nitrite Urine UA NEGATIVE (Negative); Occult Blood Urine UA NEGATIVE (Negative); Protein Urine UA NEGATIVE (Negative); Specific Gravity Urine UA <=1.005 (1.000-1.035); Urobilinogen Urine UA 0.2 E.U./dL (0.2)
[2024-01-16 20:08] LABS: pH Urine UA 5.5 (4.5-8.0)
[2024-01-16 20:10] LABS: Ur Creatinine Normal (Normal); Ur Specific Gravity Normal (Normal); Urine Amphetamines Negative (Negative); Urine Barbiturates Negative (Negative); Urine Benzodiazepines Negative (Negative); Urine Cocaine Negative (Negative); Urine MDMA Negative (Negative); Urine Methadone Negative (Negative); Urine Methamphetamines Negative (Negative); Urine Opiates Negative (Negative); Urine Oxycodone Negative (Negative); Urine Phencyclidine Negative (Negative); Urine THC Positive (Negative); Urine Tricyclic Antidepressant Negative (Negative); Urine pH Normal (Normal)
[2024-01-16 20:12] LABS: Bacteria Urine Occasional (0-1); Culture Indicated Urine Cult Not Indicated; RBC Urine None Seen (0-5/HPF); Squamous Epithelial Cell Urine 5-10 /HPF (0-5/HPF); Urine Volume 10mL (spun); WBC Urine 0-1/HPF (0-5/HPF)
[2024-01-16 20:43] LABS: Add Manual Diff / Slide Review NO; Basophils Absolute Auto 100 /uL (0-100); Basophils Percent Auto 1.1 % (0-2); Eosinophils Absolute Auto 100 /uL (0-450); Eosinophils Percent Auto 1.3 % (2-4); Hematocrit 36.8 % (36-46); Hemoglobin 12.4 g/dL (12.0-16.0); Lymphocytes Absolute Auto 2100 /uL (1100-4500); Lymphocytes Percent Auto 36.6 % (25-40); Mean Corpuscular HGB Conc 33.7 % (30-36); Mean Corpuscular Hemoglobin 34.3 PG (26-34); Mean Corpuscular Volume 101.8 fL (80-100); Monocytes Absolute Auto 500 /uL (0-900); Monocytes Percent Auto 9.2 % (3-14); Neutrophils Absolute Auto 3000 /uL (1500-7000); Neutrophils Percent Auto 51.8 % (50-75); Platelet Count 301 X10^3/uL (150-400); Red Blood Cell Count 3.62 X10^6/uL (4.0-5.2); White Blood Cell Count 5.9 X10^3/uL (4.5-11.0)
[2024-01-16 20:58] LABS: Alanine Aminotransferase 20 IU/L (<35); Albumin 4.4 g/dL (3.5-5.0); Albumin Globulin Ratio 1.2 (1.0-2.8); Alkaline Phosphatase 69 U/L (38-126); Aspartate Aminotransferase 23 IU/L (14-36); BUN Creatinine Ratio 19.6 (6-22); Bilirubin Total 0.4 mg/dL (0.2-1.3); Blood Urea Nitrogen 11 mg/dL (7-17); Calcium 9.1 mg/dL (8.4-10.2); Carbon Dioxide 27 mmol/L (22-32); Chloride 107 mmol/L (98-107); Creatine Kinase 38 U/L (30-135); Estimated Glomerular Filt Rate > 60 mL/min (>60); Ethanol (ETOH) < 10 mg/dL; Globulin 3.6 g/dL (1.7-4.1); Glucose 88 mg/dL (70-100); HEMOLYSIS < 15 (0-50); Potassium 3.9 mmol/L (3.4-5.1); Sodium 140 mmol/L (137-145)
[2024-01-16] MEDS: SODIUM CHLORIDE 0.9% 1,000 ML 1000 ML IV (21:02)
[2024-01-16 21:25] LABS: HCG Quantitative /Beta subunit < 2.39 mIU/mL
[2024-01-16 22:04] LABS: Folate 8.4 ng/mL (2.76-20.0); Vitamin B12 < 159 pg/mL (239-931)
[2024-01-16 22:07] LABS: Thyroid Stimulating Hormone 0.475 uIU/mL (0.47-4.68)
--- NOTE | 2024-01-16 22:22 | DI.RAD.S_ITS ---
PROCEDURE: XR THORACIC SPINE 2V INDICATIONS: back pain TECHNIQUE: 3 views of the thoracic spine were acquired. COMPARISON: None. FINDINGS: Bones: No fractures or dislocations. No suspicious bony lesions. 12 pairs of ribs are noted, and appear intact where visualized. Soft tissues: No paravertebral stripe thickening. IMPRESSION: No acute compression fracture or spondylolisthesis in thoracic spine. Dictated by: Eh Bates M.D. on 01/16/2024 at 23:09 Approved by: Eh Bates M.D. on 01/16/2024 at 23:09
--- NOTE | 2024-01-16 22:22 | DI.RAD.S_ITS ---
PROCEDURE: XR LUMBAR SPINE 2-3V INDICATIONS: back pain TECHNIQUE: 3 views of the lumbar spine were acquired. COMPARISON: None. FINDINGS: Bones: 5 [id number] vertebrae are present. There is normal bony alignment. No vertebral body compression fractures. No suspicious bony lesions. Soft tissues: Overlying bowel gas pattern is normal. No suspicious soft tissue calcifications. IMPRESSION: No acute compression fracture or spondylolisthesis in lumbar spine. Dictated by: Eh Bates M.D. on 01/16/2024 at 23:08 Approved by: Eh Bates M.D. on 01/16/2024 at 23:09
[2024-01-16] MEDS: ACETAMINOPHEN 325 MG TABLET 650 MG PO (22:30)
[2024-01-16] MEDS: hydrOXYzine HCL 25 MG TABLET PO (22:31)
[2024-01-17] VITALS: PULSE 74; O2SAT 99
--- NOTE | 2024-01-17 00:20 | PC.NURSE ---
Patient's mother approached nurses station stating the her and the patient want to leave. This RN explained process of awaiting MD to review results with them and to then be able to provide further instructions/plan. Family and patient do not want to wait for provider to re-evaluate them and requested IV be removed from patient. IV removed without complications. Patient stood up out of bed independently and began walking around room before deciding she would like a wheelchair out. She had steady gait while moving in room. Patient was assisted out to private vehicle via wheelchair by mother.
== END 2024-01-17 00:18 | disposition left against medical advice (07) ==
PROVIDERS: Emergency Provider Emergency Medicine
DX: R20.0 Anesthesia of skin (principal); M54.9 Dorsalgia, unspecified; F12.90 Cannabis use, unspecified, uncomplicated; F41.9 Anxiety disorder, unspecified
CPT/HCPCS: 72070; 72100; 80053; 80305; 80320; 81001; 82550; 82607; 82746; 82962; 84443; 84702; 85025; 99284; A9270